=== PATIENT | female | born 1970 | race Caucasian/White ===

== ENCOUNTER 2018-08-14 10:40 | Emergency (ER) | payer OTHER, SELFPAY ==
[2018-08-14 10:54] VITALS: BP 154/77; PULSE 65; RESP 20; TEMP 36.3; O2SAT 100
[2018-08-14 12:02] VITALS: BP 142/77; PULSE 61; RESP 18; O2SAT 100
--- NOTE | 2018-08-14 12:06 | ED.ABDPAIN ---
HPI - Abdominal Pain General Chief Complaint: Abdominal Pain Stated Complaint: stomach cramping, vomited Time Seen by Provider: 08/14/18 11:38 Source: patient Mode of arrival: ambulatory Limitations: no limitations History of Present Illness HPI narrative: Patient states that a couple of days ago, she had a cramp in her right lower quadrant. She states that this was short lived, and she did not think much of it as she was otherwise feeling well. She states that around 830 this morning, she began to notice that she was having pain in the right lower quadrant again, and quickly got quite intense. Patient states that it feels like a very strong cramp. She states that she did become nauseated and vomit and that she is still feeling nauseated. She denies diarrhea or constipation; she states that her is a chiropractor and told her she may have a ?ileocecal valve blockage?. She states that he tried to massage the area and see if things would get cleared up, but that the pain persisted she came here. The patient did try taking some stool softeners at home. Patient denies fever, dysuria, hematuria, or history of kidney stones. She has no history of ovarian cysts or torsion. No vaginal bleeding or discharge. She has a history of a uterine prolapse, and states she has been going through menopause. Patient has not eaten anything today, and has been nauseated with the pain, but states that her appetite has been normal otherwise. MD complaint: abdominal pain Onset (ago): hour(s) Pain Consistency: constant and colicky Location: RLQ Severity: moderate Severity scale (1-10): 7 Quality: cramping and stabbing Radiation: none Migration to: no migration Relieving factors: nothing Exacerbating factors: nothing Context: other (See above) Associated symptoms: nausea and vomiting Related Data Previous Rx's Medication Instructions Recorded acetaminophen-codeine 2 tab PO Q4-6H PRN #14 tab 08/14/18 [Tylenol-Codeine #3] ondansetron [Zofran ODT] 4 mg PO QID PRN #14 tab 08/14/18 Allergies Allergy/AdvReac Type Severity Reaction Status Date / Time Penicillins [PENICILLINS] Allergy Mild swelling Unverified 01/31/18 12:43 Review of Systems Review of Systems All systems reviewed & are unremarkable except as noted in HPI and below Constitutional Denies chills, Denies fever(s), Denies lethargy and Denies weakness Eyes Denies change in vision, Denies eye discharge, Denies irritation and Denies loss of vision ENT Ears, Nose, Mouth, and Throat: Denies change in voice, Denies neck pain and Denies sore throat Cardiovascular Denies chest pain, Denies irregular heart rhythm, Denies lightheadedness, Denies palpitations, Denies dyspnea, Denies dyspnea on exertion and Denies orthopnea Respiratory Denies cough, Denies dyspnea, Denies dyspnea on exertion and Denies wheezing Gastrointestinal Gastrointestinal: Reports abdominal pain, Denies change in bowel habits, Denies diarrhea, Reports nausea and Reports vomiting Genitourinary Denies hematuria, Denies flank pain, Denies urinary incontinence and Denies urinary urgency Musculoskeletal Denies neck pain Integumentary/Breasts Denies pruritus, Denies erythema, Denies rash and Denies wounds Neurologic Denies confusion, Denies loss of vision and Denies weakness Psychiatric Denies anxiety, Denies confusion, Denies depression, Denies homicidal ideation and Denies suicidal ideation Endocrine Denies palpitations Hematologic/Lymphatic Denies easy bruising Allergic/Immunologic Denies wheezing FORMERLY [facility] Medical History Uterine prolapse (Acute) Healthy adult (Acute) 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 Initial Vital Signs Initial Vital Signs: Vital Signs Temperature 97.3 F L 08/14/18 10:54 Pulse Rate 65 08/14/18 10:54 Respiratory Rate 20 08/14/18 10:54 Blood Pressure 154/77 H 08/14/18 10:54 Pulse Oximetry 100 08/14/18 10:54 Const General: cooperative and well developed Nutritional Appearance: well nourished Orientation: alert, awake, oriented x3 and not confused HENMT Head: normocephalic and atraumatic Ears: external ears normal and TM's normal bilaterally Nose: external nose normal and No nasal discharge Face and sinus: sinuses nontender, face symmetric, no sinus tenderness and No dry mucous membranes Mouth: oral mucosae normal and moist mucous membranes Teeth and gingiva: dentition normal Throat: tonsils normal and uvula midline Eyes General: appearance normal, both eyes and all related structures Eyelids: eyelids normal Conjunctivae: conjunctivae normal Sclera: sclerae normal Pupils: PERRL EOM: EOM intact bilaterally Neck Neck: normal visual inspection, trachea midline, No lymphadenopathy, No midline deformity and No JVD Lymphatic: No lymphedema Chest Chest: normal inspection of the chest Resp Effort & Inspection: normal respiratory effort, able to speak in complete sentences, no respiratory distress and no use of accessory muscles Auscultation: clear to auscultation bilaterally, no rales, no rhonchi and no wheezes Cardio Rate: regular rate Rhythm: regular rhythm Heart Sounds: no click, no gallops, no murmurs and no rubs Pulses: normal peripheral pulses GI Inspection: non-distended Palpation: soft, no hepatosplenomegaly, No guarding, No pulsatile mass and No tender Auscultation: normal bowel sounds Other: Patient denies tenderness with palpation of any part of her abdomen or pelvis. Back/Spine/Pelvis Back: No CVA tenderness Cervical Spine: cervical ROM normal and No pain with cervical ROM Thoracic/Lumbar Spine: thoracic and lumbar spine normal to inspection Skin General: no rashes or lesions noted, No jaundice and No petechiae Neuro General: alert, oriented x3, gait normal and no focal motor deficits Speech: speech normal Extrem General: full ROM, no clubbing, cyanosis or edema, no pedal edema and no calf tenderness Psych Appearance: well kempt Mental Status: mental status grossly normal Attitude: cooperative Thought Content: normal and suicidality Judgment: judgment good Course Course Narrative: Patient was worked up with labs and CT scan of the abdomen pelvis. Orders Ordered: Discontinued Medications Hydromorphone HCl (Dilaudid) 0.5 mg IV NOW ONE Stop: 08/14/18 12:08 Last Admin: 08/14/18 12:22 Dose: 0.5 mg Sodium Chloride (Normal Saline 0.9%) 1,000 mls @ 1,000 mls/hr IV BOLUS ONE Stop: 08/14/18 13:07 Last Infusion: 08/14/18 13:27 Dose: 0 mls/hr Admin: 08/14/18 12:22 Dose: 1,000 mls/hr Ondansetron HCl (Zofran) 4 mg IV NOW ONE Stop: 08/14/18 12:08 Last Admin: 08/14/18 12:22 Dose: 4 mg Vital Signs - 8 hr 08/14/18 10:54 08/14/18 12:02 Temperature 97.3 F L Pulse Rate 65 61 Respiratory Rate 20 18 Blood Pressure 154/77 H Blood Pressure [Left Arm] 142/77 H Pulse Oximetry 100 100 MDM - Abdominal Pain Medical Records Attestation: I reviewed the patient's medical records. Lab Data Attestation: I reviewed the patient's lab results. Result diagrams: 08/14/18 11:00 08/14/18 11:00 Lab Results 08/14/18 08/14/18 08/14/18 Range/Units 10:45 11:00 11:00 WBC Cancelled RBC Cancelled Hgb Cancelled Hct Cancelled MCV Cancelled MCH Cancelled MCHC Cancelled RDW Cancelled Plt Count Cancelled Neut % (Auto) Cancelled Lymph % (Auto) Cancelled [place] % (Auto) Cancelled Eos % (Auto) Cancelled Baso % (Auto) Cancelled Neut # (Auto) Cancelled Sodium Cancelled Potassium Cancelled Chloride Cancelled Carbon Dioxide Cancelled BUN Cancelled Creatinine Cancelled Estimated GFR Cancelled BUN/Creatinine Ratio Cancelled Glucose Cancelled Calcium Cancelled Total Bilirubin Cancelled AST Cancelled ALT Cancelled Alkaline Phosphatase Cancelled Total Protein Cancelled Albumin Cancelled Globulin Cancelled Albumin/Globulin Ratio Cancelled Specimen Hemolysis Cancelled Urine Color Yellow Urine Appearance Clear Urine pH 7.5 (4.5-8.0) Ur Specific [place] 1.020 (1.000-1.035) Urine Protein Negative (Negative) Urine Glucose (UA) Negative (Normal) g/dL Urine Ketones Negative (NEGATIVE) Urine Occult Blood Trace-lysed (Negative) Urine Nitrate Negative (Negative) Urine Bilirubin Negative (NEGATIVE) Urine Urobilinogen 0.2 (0.2) E.U./dL Ur Leukocyte Esterase Negative (NEGATIVE) Urine RBC 0-1/hpf (0-5/HPF) Urine WBC 1-5/hpf (0-5/HPF) Ur Squamous Epith Cells 1-5 /hpf Urine Bacteria Moderate (10-30) H (None) Urine Mucus 1+ H (Negative) Ur Culture Indicated? Cult not indicated Micro UA Comment Not Reportable 08/14/18 08/14/18 Range/Units 11:00 11:00 WBC 7.9 RBC 4.98 Hgb 13.3 Hct 39.2 MCV 78.7 L MCH 26.7 MCHC 34.0 RDW 13.3 Plt Count 325 Neut % (Auto) 78.6 H Lymph % (Auto) 15.8 L [place] % (Auto) 4.5 Eos % (Auto) 0.6 L Baso % (Auto) 0.5 Neut # (Auto) 6200 H Sodium 143 Potassium 3.8 Chloride 105 Carbon Dioxide 24 BUN 19 H Creatinine 0.80 Estimated GFR > 60.0 BUN/Creatinine Ratio 23.8 H Glucose 131 H Calcium 9.5 Total Bilirubin 0.5 AST 38 H ALT 29 Alkaline Phosphatase 83 Total Protein 7.5 Albumin 4.4 Globulin 3.1 Albumin/Globulin Ratio 1.4 Specimen Hemolysis Urine Color Urine Appearance Urine pH (4.5-8.0) Ur Specific [place] (1.000-1.035) Urine Protein (Negative) Urine Glucose (UA) (Normal) g/dL Urine Ketones (NEGATIVE) Urine Occult Blood (Negative) Urine Nitrate (Negative) Urine Bilirubin (NEGATIVE) Urine Urobilinogen (0.2) E.U./dL Ur Leukocyte Esterase (NEGATIVE) Urine RBC (0-5/HPF) Urine WBC (0-5/HPF) Ur Squamous Epith Cells Urine Bacteria (None) Urine Mucus (Negative) Ur Culture Indicated? Micro UA Comment Point of care testing: Point of Care Testing Test Results Negative Imaging Data CT scan - abdomen: Attestation: I personally reviewed and interpreted this imaging study as follows: Radiologist's impression: PROCEDURE: CT ABDOMEN PELVIS W CON INDICATIONS: right flank pain TECHNIQUE: After the administration of intravenous contrast, 5 mm thick sections acquired from the diaphragm to the symphysis. 5 mm coronal and sagittal reformats were acquired. For radiation dose reduction, the following was used: automated exposure control, adjustment of mA and/or kV according to patient size. COMPARISON: None. FINDINGS: Image quality: Excellent. ABDOMEN: Lung bases: Lung bases are clear. Heart size is normal. Solid organs: Liver is normal in size and enhancement. Gallbladder contains a 2 cm partially calcified stone in its dependent portion. No gross gallbladder wall thickening or pericholecystic fluid.. Biliary system is non dilated. Pancreas enhances normally. Spleen is normal in size and enhancement. No adrenal nodules. Bilateral kidneys are normal in size. There is moderate right perinephric fat stranding and small amount of right perinephric fluid collection. Prominence of right renal collecting system and right ureter is seen with extensive right periureteral fat stranding to the level of right UVJ. No discrete obstructing renal stone is identified. No left-sided hydronephrosis or hydroureter. No left perinephric fat stranding or fluid. Numerous bilateral renal cysts are seen measures up to 3.5 x 2.8 cm in size in lower pole of right kidney. Peritoneum and bowel: There is no evidence of bowel obstruction. No abnormal bowel wall thickening or mesenteric fat stranding. No peritoneal free fluid or free air. Nodes and vessels: No retroperitoneal or mesenteric adenopathy by size criteria. Aorta and inferior vena cava are normal in size. Miscellaneous: No ventral hernias. PELVIS: Genitourinary: Bladder wall thickness is normal. No calcified bladder stone is seen. No gross abnormality is seen the uterus and bilateral adnexa. Miscellaneous: No inguinal hernias or adenopathy. Bones: No suspicious bony lesions. No vertebral body compression fractures. IMPRESSION: 1. Mild right-sided hydronephrosis with moderate right perinephric fat stranding a small amount of perinephric fluid. No gross calcified renal cyst or ureteral stone is seen. Finding may represent infectious or inflammatory process involving right kidney and right ureter. Noncalcified ureteral stones or ureteral soft tissue mass cannot be excluded, suggest urological correlation. No left-sided hydronephrosis or perinephric inflammatory changes. Normal appearing left ureter. Suggestion of bilateral renal cysts. 2. No gross abnormality is seen the urinary bladder. 3. Cholelithiasis, no CT evidence of acute cholecystitis. 4. No bowel obstruction. No free fluid or free air. No gross abdominal or pelvic adenopathy. Dictated by: Toni Araujo M.D. on 08/14/2018 at 14:19 Approved by: Toni Araujo M.D. on 08/14/2018 at 14:25 MDM Narrative Medical decision making narrative: Patient was treated symptomatically, and found to be feeling better. Her workup was unremarkable , except for evidence on CT scan of a noncalcified ureteral calculus. I did discuss with the patient that this is the most likely cause of the patient's pain. We have discussed home management of the symptoms, as well as the usual indications for return. I have prescribed the patient medication for symptomatic relief at home, and patient has been given a strainer. Discharge Plan Departure Patient Disposition: Home Clinical Impression: Calculus of kidney Discharge Date/Time: 08/14/18 15:30 Interventions: ED Discharge Assessment Last Done: 08/14/18 15:29 Instructions: DI for Kidney Stones Activity Restrictions/Additional Instructions: Your CT scan shows evidence of a non calcified kidney stone on the right. This has likely come most of the way down your ureter, and should pass into your bladder in the next 1-3 days. To help this process along, please drink plenty of water. You may take the nausea and pain medicine as needed. Prescriptions: New acetaminophen-codeine [Tylenol-Codeine #3] 300-30 mg tablet 2 tab PO Q4-6H PRN (Reason: pain) Qty: 14 RF: 0 ondansetron [Zofran ODT] 4 mg tablet,disintegrating 4 mg PO QID PRN (Reason: nausea and vomiting) Qty: 14 RF: 0 Referrals: Josué Conde MD [Non-Staff] - Henna Ramirez ND [Primary Care Provider] -
[2018-08-14] MEDS: ONDANSETRON 4 MG/2 ML INJ IV (12:22)
[2018-08-14] MEDS: HYDROMORPHONE 1 MG INJ 0.5 MG IV (12:22)
[2018-08-14] MEDS: SODIUM CHLORIDE 0.9% 1,000 ML 1000 ML IV (12:22)
[2018-08-14 12:45] VITALS: BP 141/67; PULSE 52; RESP 16; O2SAT 100
[2018-08-14 12:49] LABS: Appearance Urine UA CLEAR; Bilirubin Urine UA NEGATIVE (NEGATIVE); Color Urine UA YELLOW; Glucose Urine UA NEGATIVE (Normal); Ketones Urine UA NEGATIVE (NEGATIVE); Leukocyte Esterase Urine UA NEGATIVE (NEGATIVE); Nitrite Urine UA NEGATIVE (Negative); Occult Blood Urine UA TRACE-LYSED (Negative); Protein Urine UA NEGATIVE (Negative); Urobilinogen Urine UA 0.2 E.U./dL (0.2); pH Urine UA 7.5 (4.5-8.0)
[2018-08-14 12:59] LABS: Bacteria Urine Moderate (10-30); Mucus Urine 1+ (Negative); RBC Urine 0-1/HPF (0-5/HPF); Squamous Epithelial Cell Urine 1-5 /HPF; WBC Urine 1-5/HPF (0-5/HPF)
[2018-08-14 13:00] LABS: Culture Indicated Urine Cult Not Indicated
--- NOTE | 2018-08-14 13:44 | DI.CT.S_ITS ---
PROCEDURE: CT ABDOMEN PELVIS W CON INDICATIONS: right flank pain TECHNIQUE: After the administration of intravenous contrast, 5 mm thick sections acquired from the diaphragm to the symphysis. 5 mm coronal and sagittal reformats were acquired. For radiation dose reduction, the following was used: automated exposure control, adjustment of mA and/or kV according to patient size. COMPARISON: None. FINDINGS: Image quality: Excellent. ABDOMEN: Lung bases: Lung bases are clear. Heart size is normal. Solid organs: Liver is normal in size and enhancement. Gallbladder contains a 2 cm partially calcified stone in its dependent portion. No gross gallbladder wall thickening or pericholecystic fluid.. Biliary system is non dilated. Pancreas enhances normally. Spleen is normal in size and enhancement. No adrenal nodules. Bilateral kidneys are normal in size. There is moderate right perinephric fat stranding and small amount of right perinephric fluid collection. Prominence of right renal collecting system and right ureter is seen with extensive right periureteral fat stranding to the level of right UVJ. No discrete obstructing renal stone is identified. No left-sided hydronephrosis or hydroureter. No left perinephric fat stranding or fluid. Numerous bilateral renal cysts are seen measures up to 3.5 x 2.8 cm in size in lower pole of right kidney. Peritoneum and bowel: There is no evidence of bowel obstruction. No abnormal bowel wall thickening or mesenteric fat stranding. No peritoneal free fluid or free air. Nodes and vessels: No retroperitoneal or mesenteric adenopathy by size criteria. Aorta and inferior vena cava are normal in size. Miscellaneous: No ventral hernias. PELVIS: Genitourinary: Bladder wall thickness is normal. No calcified bladder stone is seen. No gross abnormality is seen the uterus and bilateral adnexa. Miscellaneous: No inguinal hernias or adenopathy. Bones: No suspicious bony lesions. No vertebral body compression fractures. IMPRESSION: 1. Mild right-sided hydronephrosis with moderate right perinephric fat stranding a small amount of perinephric fluid. No gross calcified renal cyst or ureteral stone is seen. Finding may represent infectious or inflammatory process involving right kidney and right ureter. Noncalcified ureteral stones or ureteral soft tissue mass cannot be excluded, suggest urological correlation. No left-sided hydronephrosis or perinephric inflammatory changes. Normal appearing left ureter. Suggestion of bilateral renal cysts. 2. No gross abnormality is seen the urinary bladder. 3. Cholelithiasis, no CT evidence of acute cholecystitis. 4. No bowel obstruction. No free fluid or free air. No gross abdominal or pelvic adenopathy. Dictated by: Toni Araujo M.D. on 08/14/2018 at 14:19 Approved by: Toni Araujo M.D. on 08/14/2018 at 14:25
[2018-08-14 14:07] LABS: Add Manual Diff / Slide Review NO; Basophils Percent Auto 0.5 % (0-2); Eosinophils Percent Auto 0.6 % (2-4); Hematocrit 39.2 % (36-46); Hemoglobin 13.3 g/dL (12.0-16.0); Lymphocytes Percent Auto 15.8 % (25-40); Mean Corpuscular Hemoglobin 26.7 PG (26-34); Mean Corpuscular Volume 78.7 fL (80-100); Monocytes Percent Auto 4.5 % (3-14); Neutrophils Absolute Auto 6200 /uL (3000-5900); Neutrophils Percent Auto 78.6 % (50-75); Platelet Count 325 X10^3/uL (150-400); Red Blood Cell Count 4.98 X10^6/uL (4.0-5.2); Red Cell Distribution Width 13.3 % (11.6-14.8); White Blood Cell Count 7.9 X10^3/uL (4.5-11.0)
[2018-08-14 14:15] VITALS: BP 127/64; PULSE 73; RESP 16; O2SAT 97
[2018-08-14 14:18] LABS: Alanine Aminotransferase 29 IU/L (9-52); Albumin 4.4 g/dL (3.5-5.0); Albumin Globulin Ratio 1.4 (1.0-2.8); Alkaline Phosphatase 83 U/L (38-126); Aspartate Aminotransferase 38 IU/L (14-36); BUN Creatinine Ratio 23.8 (6-22); Bilirubin Total 0.5 mg/dL (0.2-1.3); Blood Urea Nitrogen 19 mg/dL (7-17); Calcium 9.5 mg/dL (8.4-10.2); Carbon Dioxide 24 mmol/L (22-32); Chloride 105 mmol/L (98-107); Estimated Glomerular Filt Rate > 60.0 mL/min (>60); Globulin 3.1 g/dL (1.7-4.1); Glucose 131 mg/dL (70-100); HEMOLYSIS < 15 (0-50); Potassium 3.8 mmol/L (3.4-5.1); Sodium 143 mmol/L (137-145); Total Protein 7.5 g/dL (6.3-8.2)
[2018-08-14 15:21] VITALS: BP 136/65
[2018-08-14 15:29] VITALS: BP 136/65; PULSE 67; RESP 12; TEMP 37; O2SAT 99
== END 2018-08-14 15:30 | disposition home or self-care (01) ==
PROVIDERS: Emergency Provider Emergency Medicine; PCP Acupuncturist
DX: N20.0 Calculus of kidney (principal)
CPT/HCPCS: 36591; 74177; 80053; 81001; 81025; 85025; 96361; 96374; 96375; 99283; 99285; J1170; J2405; Q9967

== ENCOUNTER → 2020-11-13 12:15 | Outpatient (CLI) | payer OTHER, SELFPAY ==
[2020-11-13] MEDS: COVID-19 VACC #1, MRNA(MOD) 100 MCG/0.5 ML VIAL IM (12:28)
== END ==
PROVIDERS: PCP Acupuncturist; Visit Provider Internal Medicine
DX: Z23 Encounter for immunization (principal)
CPT/HCPCS: 0011A; 91301

== ENCOUNTER → 2020-12-09 08:11 | Outpatient (CLI) | payer OTHER, SELFPAY ==
[2020-12-09 09:42] LABS: Add Manual Diff / Slide Review NO; Basophils Absolute Auto 100 /uL (0-100); Eosinophils Absolute Auto 100 /uL (0-450); Eosinophils Percent Auto 2.2 % (2-4); Hemoglobin 13.6 g/dL (12.0-16.0); Lymphocytes Absolute Auto 1900 /uL (1100-4500); Lymphocytes Percent Auto 33.2 % (25-40); Mean Corpuscular Hemoglobin 26.7 PG (26-34); Mean Corpuscular Volume 78.5 fL (80-100); Monocytes Absolute Auto 400 /uL (0-900); Neutrophils Absolute Auto 3200 /uL (1500-7000); Neutrophils Percent Auto 56.6 % (50-75); Platelet Count 292 X10^3/uL (150-400); Red Blood Cell Count 5.09 X10^6/uL (4.0-5.2); Red Cell Distribution Width 13.2 % (11.6-14.8); White Blood Cell Count 5.7 X10^3/uL (4.5-11.0)
[2020-12-09 09:55] LABS: Alanine Aminotransferase 31 IU/L (<35); Albumin 4.2 g/dL (3.5-5.0); Albumin Globulin Ratio 1.3 (1.0-2.8); Alkaline Phosphatase 85 U/L (38-126); Aspartate Aminotransferase 33 IU/L (14-36); BUN Creatinine Ratio 31.1 (6-22); Bilirubin Total 0.5 mg/dL (0.2-1.3); Blood Urea Nitrogen 23 mg/dL (7-17); Calcium 9.2 mg/dL (8.4-10.2); Carbon Dioxide 30 mmol/L (22-32); Chloride 105 mmol/L (98-107); Cholesterol 223 mg/dL (140-199); Estimated Glomerular Filt Rate > 60.0 mL/min (>60); Globulin 3.2 g/dL (1.7-4.1); Glucose 109 mg/dL (70-100); HDL Cholesterol 44 mg/dL (40-60); HEMOLYSIS < 15 (0-50); LDL Cholesterol Calculated 142 mg/dL (<100); Sodium 138 mmol/L (137-145); Total Protein 7.4 g/dL (6.3-8.2); Triglycerides 184 mg/dL (35-150)
[2020-12-09 10:31] LABS: Ferritin 50 ng/mL (11-264)
[2020-12-09 10:33] LABS: Thyroid Stimulating Hormone 2.54 uIU/mL (0.47-4.68)
== END ==
PROVIDERS: PCP Acupuncturist; Referring Provider Acupuncturist; Visit Provider Acupuncturist
DX: Z00.00 Encounter for general adult medical examination without abnormal findings (principal)
CPT/HCPCS: 36415; 80053; 80061; 82728; 84443; 85025

== ENCOUNTER → 2020-12-11 12:46 | Outpatient (CLI) | payer OTHER, SELFPAY ==
[2020-12-11] MEDS: COVID-19 VACC #2, MRNA(MOD) 100 MCG/0.5 ML VIAL IM (12:56)
== END ==
PROVIDERS: PCP Acupuncturist; Visit Provider Internal Medicine
DX: Z23 Encounter for immunization (principal)
CPT/HCPCS: 0012A; 91301

== ENCOUNTER → 2022-11-30 07:23 | Outpatient (CLI) | payer OTHER, SELFPAY ==
--- NOTE | 2022-11-30 | DI.MG.S_ITS ---
BILATERAL DIGITAL SCREENING MAMMOGRAM 3D/2D WITH CAD: 11/30/2022 CLINICAL: Routine screening. Family history of breast cancer. Comparison is made to exams dated: 03/03/2017 ultrasound and 03/03/2017 mammogram - [facility]. There are scattered areas of fibroglandular density in both breasts (category b / 25%-50% glandular tissue). Current study was also evaluated with a Computer Aided Detection (CAD) system. There is irregular architectural distortion in the right breast middle depth lateral region seen on the craniocaudal view only. No other significant masses, calcifications, or other findings are seen in either breast. IMPRESSION: INCOMPLETE: NEEDS ADDITIONAL IMAGING EVALUATION The irregular architectural distortion in the right breast is indeterminate. Additional views with possible ultrasound are recommended. Based on the Tyrer Cuzick model (a risk assessment model) the patient's lifetime risk is 8.2% and her 10 year risk is 2.2%. According to the ACR, ACS, and NCCN guidelines, an annual breast MRI exam along with mammogram is recommended if the patient's lifetime risk is 20% or greater. This exam was interpreted at Station ID: [id number]. NOTE: For mammograms, a report in lay terms will be sent to the patient. Approximately 15% of breast malignancies will not be visualized mammographically. In the management of a palpable breast mass, a negative mammogram must not discourage biopsy of a clinically suspicious lesion. Electronically Signed By: Mann Fried M.D. acr/:11/30/2022 08:57:42 letter sent: Additional Imaging Needed ACR BI-RADS Category 0: Incomplete 3340F
[2022-11-30 08:24] LABS: Add Manual Diff / Slide Review NO; Basophils Absolute Auto 100 /uL (0-100); Basophils Percent Auto 1.3 % (0-2); Eosinophils Absolute Auto 100 /uL (0-450); Eosinophils Percent Auto 2.4 % (2-4); Hematocrit 40.7 % (36-46); Hemoglobin 13.4 g/dL (12.0-16.0); Lymphocytes Absolute Auto 2000 /uL (1100-4500); Lymphocytes Percent Auto 34.7 % (25-40); Mean Corpuscular HGB Conc 32.9 % (30-36); Mean Corpuscular Hemoglobin 26.2 PG (26-34); Mean Corpuscular Volume 79.5 fL (80-100); Monocytes Absolute Auto 400 /uL (0-900); Monocytes Percent Auto 7.6 % (3-14); Neutrophils Absolute Auto 3100 /uL (1500-7000); Platelet Count 320 X10^3/uL (150-400); Red Blood Cell Count 5.13 X10^6/uL (4.0-5.2); Red Cell Distribution Width 13.4 % (11.6-14.8); White Blood Cell Count 5.7 X10^3/uL (4.5-11.0)
[2022-11-30 08:36] LABS: Alanine Aminotransferase 24 IU/L (<35); Albumin 4.3 g/dL (3.5-5.0); Albumin Globulin Ratio 1.3 (1.0-2.8); Alkaline Phosphatase 95 U/L (38-126); Aspartate Aminotransferase 29 IU/L (14-36); BUN Creatinine Ratio 27.1 (6-22); Bilirubin Total 0.7 mg/dL (0.2-1.3); Blood Urea Nitrogen 19 mg/dL (7-17); Calcium 9.1 mg/dL (8.4-10.2); Carbon Dioxide 27 mmol/L (22-32); Chloride 105 mmol/L (98-107); Cholesterol 249 mg/dL (140-199); Estimated Glomerular Filt Rate > 60 mL/min (>60); Globulin 3.3 g/dL (1.7-4.1); Glucose 112 mg/dL (70-100); HDL Cholesterol 44 mg/dL (40-60); HEMOLYSIS < 15 (0-50); Iron 151 ug/dL (37-170); LDL Cholesterol Calculated 173 mg/dL (<100); Sodium 139 mmol/L (137-145); Total Protein 7.6 g/dL (6.3-8.2); Triglycerides 161 mg/dL (35-150)
[2022-11-30 08:42] LABS: Hemoglobin A1C% w Est Avg Glu 5.7 % (4.0-6.0)
[2022-11-30 08:48] LABS: Percent Iron Saturation 41 % (15-50); Total Iron Binding Capacity 370 ug/dL (265-497); Transferrin 277 mg/dL (206-381)
[2022-11-30 08:52] LABS: Vitamin D 25 Hydroxy (D3) 28.7 ng/mL (30.0-100.0)
[2022-11-30 09:07] LABS: Thyroid Stimulating Hormone 3.49 uIU/mL (0.47-4.68)
[2022-11-30 09:11] LABS: Ferritin 44 ng/mL (11-264)
== END ==
PROVIDERS: PCP Acupuncturist; Referring Provider Acupuncturist; Visit Provider Acupuncturist
DX: Z00.00 Encounter for general adult medical examination without abnormal findings (principal); Z12.31 Encounter for screening mammogram for malignant neoplasm of breast; Z80.3 Family history of malignant neoplasm of breast
CPT/HCPCS: 36415; 77063; 77067; 80053; 80061; 82306; 82728; 83036; 83540; 83550; 84443; 85025

== ENCOUNTER → 2022-12-16 14:11 | Outpatient (CLI) | payer OTHER, SELFPAY ==
--- NOTE | 2022-12-16 | DI.MG.S_ITS ---
UNILATERAL RIGHT DIGITAL DIAGNOSTIC MAMMOGRAM 3D/2D WITH ADDITIONAL VIEWS: 12/16/2022 CLINICAL: Additional evaluation requested from prior study. Comparison is made to exams dated: 11/30/2022 mammogram, 03/03/2017 ultrasound, and 03/03/2017 mammogram - [facility]. There are scattered areas of fibroglandular density in the right breast (category b / 25%-50% glandular tissue). The architectural distortion in the right breast middle depth lateral region seen on the craniocaudal view only is no longer seen. This is not seen in additional views. No other significant masses or calcifications are seen in the breast. IMPRESSION: NEGATIVE There is no mammographic evidence of malignancy. Return to annual mammogram screening schedule is recommended. Based on the Tyrer Cuzick model (a risk assessment model) the patient's lifetime risk is 8.2% and her 10 year risk is 2.2%. According to the ACR, ACS, and NCCN guidelines, an annual breast MRI exam along with mammogram is recommended if the patient's lifetime risk is 20% or greater. This exam was interpreted at Station ID: [id number]. NOTE: For mammograms, a report in lay terms will be sent to the patient. Approximately 15% of breast malignancies will not be visualized mammographically. In the management of a palpable breast mass, a negative mammogram must not discourage biopsy of a clinically suspicious lesion. Electronically Signed By: Manish madrid/deniz:12/16/2022 16:13:55 letter sent: Normal Exam ACR BI-RADS Category 1: Negative [id number]
== END ==
PROVIDERS: PCP Acupuncturist; Referring Provider Acupuncturist; Visit Provider Acupuncturist
DX: R92.8 Other abnormal and inconclusive findings on diagnostic imaging of breast (principal)
CPT/HCPCS: 77065; G0279

== ENCOUNTER → 2024-11-07 15:30 | Outpatient (CLI) | payer OTHER, SELFPAY ==
--- NOTE | 2024-11-07 15:31 | DI.MG.S_ITS ---
BILATERAL DIGITAL SCREENING MAMMOGRAM 3D/2D WITH CAD: 11/07/2024 CLINICAL: Routine screening. Family history of breast cancer. Comparison is made to exams dated: 11/30/2022 mammogram, 03/03/2017 mammogram, and 12/16/2022 mammogram - [facility]. There are scattered areas of fibroglandular density (category b / 25%-50% glandular tissue). Current study was also evaluated with a Computer Aided Detection (CAD) system. No significant masses, calcifications, or other findings are seen in either breast. There has been no significant interval change. IMPRESSION: NEGATIVE There is no mammographic evidence of malignancy. A 1 year screening mammogram is recommended. Based on the Tyrer Cuzick model (a risk assessment model) the patient's lifetime risk is 8.1% and her 10 year risk is 2.4%. According to the ACR, ACS, and NCCN guidelines, an annual breast MRI exam along with mammogram is recommended if the patient's lifetime risk is 20% or greater. This exam was interpreted at Station ID: [id number]. NOTE: For mammograms, a report in lay terms will be sent to the patient. Approximately 15% of breast malignancies will not be visualized mammographically. In the management of a palpable breast mass, a negative mammogram must not discourage biopsy of a clinically suspicious lesion. Electronically Signed By: Matheus askew/deniz:11/08/2024 12:40:31 letter sent: Normal Exam ACR BI-RADS Category 1: Negative
== END ==
PROVIDERS: PCP Family Medicine; Referring Provider Family Medicine; Visit Provider Family Medicine
DX: Z12.31 Encounter for screening mammogram for malignant neoplasm of breast (principal); Z80.3 Family history of malignant neoplasm of breast
CPT/HCPCS: 77063; 77067

== ENCOUNTER → 2024-11-11 08:14 | Outpatient (CLI) | payer OTHER, SELFPAY ==
[2024-11-11 08:52] LABS: Hemoglobin A1C% w Est Avg Glu 5.5 % (4.0-6.0)
[2024-11-11 08:54] LABS: Alanine Aminotransferase 27 IU/L (<35); Albumin 4.4 g/dL (3.5-5.0); Albumin Globulin Ratio 1.5 (1.0-2.8); Alkaline Phosphatase 105 U/L (38-126); Aspartate Aminotransferase 32 IU/L (14-36); BUN Creatinine Ratio 23.8 (6-22); Bilirubin Total 0.7 mg/dL (0.2-1.3); Blood Urea Nitrogen 19 mg/dL (7-17); Calcium 9.7 mg/dL (8.4-10.2); Carbon Dioxide 24 mmol/L (22-32); Chloride 108 mmol/L (98-107); Cholesterol 272 mg/dL (140-199); Estimated Glomerular Filt Rate > 60 mL/min (>60); Globulin 2.9 g/dL (1.7-4.1); Glucose 106 mg/dL (70-100); HDL Cholesterol 52 mg/dL (40-60); HEMOLYSIS < 15 (0-50); LDL Cholesterol Calculated 185 mg/dL (<100); Potassium 4.5 mmol/L (3.4-5.1); Sodium 138 mmol/L (137-145); Total Protein 7.3 g/dL (6.3-8.2); Triglycerides 174 mg/dL (35-150)
== END ==
PROVIDERS: PCP Family Medicine; Referring Provider Family Medicine; Visit Provider Family Medicine
DX: Z13.220 Encounter for screening for lipoid disorders (principal); R73.09 Other abnormal glucose; Z13.1 Encounter for screening for diabetes mellitus
CPT/HCPCS: 36415; 80053; 80061; 83036

== ENCOUNTER 2024-12-02 10:41 | Day surgery (SDC) | payer OTHER, SELFPAY ==
--- NOTE | 2024-12-02 | PATH_ITS ---
[facility] Accession Number: [id number] No. of containers..02 Tissue . 01 Material submitted: . PART A: colon - CECAL COLON POLYP PART B: colon - SIGMOID COLON POLYPS X3 . 01 Diagnosis: Part A: CECAL COLON POLYP: Sessile serrated adenoma. . Part B: SIGMOID COLON POLYPS X3: Tubular adenomas. Hyperplastic polyp. STO 12/03/20241813 Local . 01 Electronically signed: . Logan Bloom MD, Pathologist NPI- [id number] . 01 Gross description: . Part A: CECAL COLON POLYP: Received in formalin are multiple fragment(s) of de leon, soft tissue measuring 0.1 x 0.1 x 0.1 cm to 0.4 x 0.4 x 0.1 cm submitted entirely in 1 cassette(s) . Part B: SIGMOID COLON POLYPS X3: Received in formalin are multiple fragment(s) of de leon, soft tissue measuring 0.2 x 0.2 x 0.2 cm to 0.4 x 0.4 x 0.4 cm submitted entirely in 1 cassette(s) /CAMRON 12/03/20244 Local . 01 Pathologist provided ICD-10: D12.0, D12.5 . 01 CPT . 792364, [id number] Specimen Comment: A courtesy copy of this report has been sent to [facility] Pathology Performed at: [address] [id number] MD Logan Bloom MD Phone: [phone]
[2024-12-02 11:13] VITALS: BP 166/91; PULSE 91; RESP 16; TEMP 36.4; O2SAT 97
[2024-12-02] MEDS: LACTATED RINGERS 1,000 ML 42 ML IV (11:29)
--- NOTE | 2024-12-02 11:41 | P.HP_ITS ---
History of Present Illness History of Present Illness Date Patient Seen: 12/02/24 Time Patient Seen: 11:41 Chief complaint: Screening Colonoscopy Narrative: 54-year-old female presents screening colonoscopy. No changes in health. [facility] Medical History (Updated 12/02/24 @ 11:42 by Jean Stokes MD) Colon cancer screening (12/02/24) Allergies Anemia Cataracts, bilateral Chlamydia Abnormal Pap smear of cervix Endometrial hyperplasia Healthy adult Pelvic floor relaxation (05/15/17) Surgical History Anesthesia Bicornuate uterus (~1997) History of cataract removal with insertion of prosthetic lens Status post tonsillectomy and adenoidectomy Family History Mother Cancer Hypertension Social History Smoking Status: Never smoker alcohol intake: current Meds Home Medications and Allergies Home Medications Medication Instructions Recorded Confirmed Type sodium,potassium,mag sulfates 17.5 See Rx Instructions PO .COMPLEX 10/29/24 Rx gram-3.13 gram-1.6 gram oral soln #354 mL (Suprep Bowel Prep Kit) Allergies Allergy/AdvReac Type Severity Reaction Status Date / Time Penicillins [PENICILLINS] Allergy Mild swelling Verified 12/02/24 11:04 Review of Systems Review of Systems ROS: Yes All systems reviewed with the patient and are negative except as otherwise documented Exam Vital Signs (past 8 hours): - 12/02/24 11:13 Temperature 97.6 F Pulse Rate 91 H Respiratory Rate 16 Blood Pressure 166/91 H Pulse Oximetry 97 Oxygen Delivery Method Room Air Oxygen Delivery Method Room Air Narrative Exam Narrative: Gen: NAD, sitting comfortably in bed, appears well HEENT: Sclera are anicteric, head is normocephalic and atraumatic, trachea is midline. CV: RRR, no JVD Resp: clear to auscultation bilaterally, equal chest wall movement bilaterally Abd: soft, nontender, normoactive bowel sounds Ext: no edema, full range of motion Neuro: Cranial nerves II-XII grossly intact, no focal deficits Skin: No erythema or ecchymosis Assessment & Plan Assessment and plan (1) Colon cancer screening: Status: Acute Assessment & Plan narrative: Patient presents for colonoscopy Risks, benefits, alternatives to colonoscopy explained, including but not limited to bowel perforation or other serious complication requiring surgery at less than 1 in 5000 colonoscopies, abdominal pain, cramping or bleeding and less than 1% of colonoscopies, and the chances that we find a diagnosis that would require further intervention of about 2%. Patient agrees to proceed. Time-Based Coding :: [TOTAL MINUTES] spent with patient and on the chart (including review of chart, obtaining history, exam, reviewing outside data, placing orders, documenting exam and treatment plan, and counseling patient) on [DATE]. PROFEE French Weaver Document charge(s): No
--- NOTE | 2024-12-02 12:03 | PM.OP.COLON ---
Operative Date/Time/Diagnoses Date of procedure: 12/02/24 Time of procedure: 12:03 Pre-op diagnosis: Colon screening Post-op diagnosis: other (Cecal colon polyps, sigmoid colon polyps x3) Procedure & Clinicians Study performed: Colonoscopy with cold snare polypectomy x4 Same procedure as scheduled: Yes Indications: Colon screen Surgeon: Jean Stokes Procedure Notes SCOAP/Timeout: Performed Procedure in detail: Time-out was performed. Mac was induced. Patient was placed in left lateral decubitus position. The perineum was inspected without any gross abnormality. Lubricated pediatric colonoscope was inserted and advanced to the cecum. The terminal ileum was intubated. The colonoscope was withdrawn slowly inspecting the circumference of the colon. Cecal polyp was noted of the appendiceal orifice. Three polyps were noted in the sigmoid, including 1/10 mm in size. All polyps were removed completely with cold snare polypectomy and retrieved. Very small polyps may have been missed, prep quality was adequate. Retroflexed view of the rectum showed small, non prolapsed nonbleeding internal hemorrhoids. The scope was withdrawn the patient was taken to PACU in good condition. Scope withdrawal time: 9 Sedation minutes: 15 Findings: internal hemorrhoids and polyp(s) Specimen(s): other (1. Cecal colon polyp 2. Sigmoid colon polyps x3) Complications: none Impression: Multiple polyps Post-procedure Recommendations: Colonoscopy in 3 years Follow up: as needed Disposition: PACU
[2024-12-02 12:04] VITALS: BP 107/59; PULSE 62; RESP 12; TEMP 36.3; O2SAT 97
[2024-12-02 12:09] VITALS: BP 102/59; PULSE 72; RESP 13; O2SAT 100
[2024-12-02 12:14] VITALS: BP 118/75; PULSE 67; RESP 14; O2SAT 99
[2024-12-02 12:18] VITALS: BP 121/72; PULSE 62; RESP 14; TEMP 36.3; O2SAT 98
== END 2024-12-02 13:02 | disposition home or self-care (01) ==
PROVIDERS: PCP Family Medicine; Referring Provider Surgery; Visit Provider Surgery
PROC: 0DJD8ZZ Inspection of Lower Intestinal Tract, Via Natural or Artificial Opening Endoscopic (ICD-10-PCS; CPT 45378; principal; 2024-12-02 11:45)
DX: Z12.11 Encounter for screening for malignant neoplasm of colon (principal); K64.8 Other hemorrhoids; D12.0 Benign neoplasm of cecum; D12.5 Benign neoplasm of sigmoid colon; K63.5 Polyp of colon
CPT/HCPCS: 45385; J2405; J2704

== ENCOUNTER → 2025-02-10 08:32 | Outpatient (CLI) | payer OTHER, SELFPAY ==
[2025-02-10 10:16] LABS: Hemoglobin A1C% w Est Avg Glu 4.8 % (4.0-6.0)
[2025-02-10 10:29] LABS: Cholesterol 220 mg/dL (140-199); HDL Cholesterol 51 mg/dL (40-60); LDL Cholesterol Calculated 151 mg/dL (<100); Triglycerides 92 mg/dL (35-150)
[2025-02-10 10:40] LABS: Vitamin D 25 Hydroxy (D3) 41.5 ng/mL (30.0-100.0)
[2025-02-10 11:00] LABS: Ferritin 79 ng/mL (11-264)
[2025-02-11 05:10] LABS: Insulin Level Total 4.9 uIU/mL (2.6-24.9)
== END ==
PROVIDERS: PCP Family Medicine; Referring Provider Family Medicine; Visit Provider Family Medicine
DX: E55.9 Vitamin D deficiency, unspecified (principal); Z78.0 Asymptomatic menopausal state; Z87.898 Personal history of other specified conditions; Z86.39 Personal history of other endocrine, nutritional and metabolic disease
CPT/HCPCS: 36415; 80061; 82306; 82728; 83036; 83525

== ENCOUNTER → 2025-07-14 08:22 | Outpatient (CLI) | payer OTHER, SELFPAY ==
[2025-07-14 09:29] LABS: Add Manual Diff / Slide Review NO; Hematocrit 38.3 % (36-46); Hemoglobin 12.9 g/dL (12.0-16.0); Lymphocytes Absolute Auto 1400 /uL (1100-4500); Mean Corpuscular HGB Conc 33.8 % (30-36); Mean Corpuscular Hemoglobin 26.9 PG (26-34); Mean Corpuscular Volume 79.6 fL (80-100); Platelet Count 267 X10^3/uL (150-400)
[2025-07-14 09:42] LABS: Alanine Aminotransferase 15 IU/L (<35); Albumin 4.0 g/dL (3.5-5.0); Albumin Globulin Ratio 1.5 (1.0-2.8); Alkaline Phosphatase 79 U/L (38-126); Blood Urea Nitrogen 20 mg/dL (7-17); Calcium 9.2 mg/dL (8.4-10.2); Carbon Dioxide 25 mmol/L (22-32); Chloride 107 mmol/L (98-107); Cholesterol 206 mg/dL (140-199); Estimated Glomerular Filt Rate > 60 mL/min (>60); Globulin 2.6 g/dL (1.7-4.1); Glucose 82 mg/dL (70-99); HDL Cholesterol 57 mg/dL (40-60); HEMOLYSIS < 15 (0-50); Hemoglobin A1C% w Est Avg Glu 5.1 % (4.0-6.0); Potassium 4.0 mmol/L (3.4-5.1); Sodium 138 mmol/L (137-145); Total Protein 6.6 g/dL (6.3-8.2); Triglycerides 62 mg/dL (35-150)
[2025-07-16 08:40] LABS: Insulin Level Total 2.3 uIU/mL (2.6-24.9)
== END ==
PROVIDERS: PCP Family Medicine; Referring Provider Family Medicine; Visit Provider Family Medicine
DX: N85.00 Endometrial hyperplasia, unspecified (principal); Z68.23 Body mass index [BMI] 23.0-23.9, adult; Z13.1 Encounter for screening for diabetes mellitus; E78.5 Hyperlipidemia, unspecified
CPT/HCPCS: 36415; 80053; 80061; 83036; 83525; 85025